=== PATIENT | female | born 1935 | race Caucasian/White ===

== ENCOUNTER 2018-06-24 14:17 | Observation (INO) ==
--- NOTE | 2018-06-24 15:30 | ED ---
HPI General Chief complaint: Extremity Problem,Nontraumatic Stated complaint: ear aches/neck/shoulder pain-lost voice Time Seen by Provider: 06/24/18 14:51 Source: patient Mode of arrival: ambulatory Limitations: no limitations History of Present Illness HPI narrative: 83-year-old female presents to the emergency department for multiple medical complaints. Patient states her left upper shoulder and neck has been sore for about 1 week. She says this started while she was on vacation recently. Says she has intermittent shortness of breath. She describes the pain as dull to sharp and intermittent in nature. When prompted, she states that she might have chest pain but is unable to characterize any further. Says the pain is decreased with sitting increases with walking and activity. She is rather poor historian and has difficulty tell me her medical problems. She states yesterday she was walking when her legs began to ache as well. She denies history of cardiac problems. Denies history of CVAs. Is unable to tell me if she has any other medical problems but shows me a list of medication which includes Coumadin, furosemide On metoprolol, and verapamil. Her primary care physician is Dr. Griffiths. Her documentation lead is Dr. Patino. Dr. Zamarripa is her oncologist. She does not know why she sees Dr. Zamarripa. After further discussion, she denies inciting events of her left shoulder pain and states she is concerned about her heart as her sister is in the hospital with heart problems. Related Data Home Medications Medication Instructions Recorded Confirmed atorvastatin 40 mg PO DAILY 04/19/18 06/24/18 furosemide 20 mg PO BID 04/19/18 06/24/18 metoprolol tartrate 100 mg PO BID 04/19/18 06/24/18 verapamil 240 mg PO QAM 04/19/18 06/24/18 warfarin [Coumadin] 1 mg PO DAILY 04/19/18 06/24/18 potassium chloride 10 meq PO DAILY 06/24/18 06/24/18 Allergies Allergy/AdvReac Type Severity Reaction Status Date / Time No Known Allergies Allergy Verified 06/24/18 14:26 Review of Systems ROS: all other systems reviewed are negative [facility] Social History Social History Substance History: No History of Abuse Second Hand Smoke Exposure: No Smoking Status: Never smoker How Often Do You Have a Drink Containing Alcohol: Never Recent Travel in [facility] within the Last 8 Weeks: No Recent Out of Country Travel within the Last 8 Weeks: No Immunization History Tetanus Immunization: Unsure Exam Narrative Exam Narrative: GENERAL: WD, WN in NAD SKIN: Focused skin assessment warm/dry. HEAD: Atraumatic. Normocephalic. EYES: Pupils equal and round. No scleral icterus. No injection or drainage. ENT: No nasal bleeding or discharge. Mucous membranes pink and moist. No tonsillar hypertrophy or exudate. Tm pearly linares. NECK: Trachea midline. No JVD. No meningismus. No lymphadenopathy. CARDIOVASCULAR: Regular rate and rhythm. No murmur appreciated. RESPIRATORY: No accessory muscle use. Clear to auscultation. Breath sounds equal bilaterally. GASTROINTESTINAL: Abdomen soft, non-tender, nondistended. Hepatic and splenic margins not palpable. No CVAT. MUSCULOSKELETAL: No obvious deformities. No clubbing. No cyanosis. No edema. No tenderness to palpation of the calves. Sensation intact to bilateral lower extremities. Minimal TTP to upper shoulder musculature. NEUROLOGICAL: Awake and alert. No obvious cranial nerve deficits. Motor grossly within normal limits. Normal speech. PSYCHIATRIC: Appropriate mood and affect; insight and judgment normal. Course Initial Documented Vital Signs Temperature 97.6 F 06/24/18 14:20 Pulse Rate 56 L 06/24/18 14:20 Respiratory Rate 16 06/24/18 14:20 Blood Pressure 107/52 L 06/24/18 14:20 Pulse Oximetry 97 06/24/18 14:20 Last Documented Vital Signs Temperature 98.3 F 06/24/18 19:00 Pulse Rate 71 06/24/18 19:00 Respiratory Rate 20 06/24/18 19:00 Blood Pressure 99/62 L 06/24/18 19:00 Pulse Oximetry 95 06/24/18 19:00 Medical Decision Making [facility] Narrative Medical decision making narrative: 83-year-old female presents to the emergency department for vague complaints. She initially complains of left shoulder and neck pain, sore throat, earaches, and generally just not feeling well. Upon further evaluation there were no inciting events. Physical exam findings were essentially unremarkable. Unable to reproduce her pain on palpation to the left shoulder and neck. She also admits to feeling occasionally short of breath and having aches in her legs. Denies swelling of her legs however. Decided to order a workup for cardiac based off of limited history from patient and poor historian. Patient admits that she has poor memory so do not believe that a septic workup is necessary at this time. I briefly reviewed the medical record it appears that patient has history of atrial fibrillation, hypertension, hyperlipidemia, arthritis, chronic CLL. Patient was seen in March of this year and was diagnosed with urinary tract infection. Labs appear to be stable. WBC 67.3, chronic. H/H3 0.83/12.1, INR 3.0 ( therapeutic), BUN/creatinine 22/1.70, troponin less than 0.02, BNP is 464. Her labs appear stable at this time. Urine is pending. EKG shows atrial fibrillation with rate 43 without STEMI changes. Reviewed previous EKG and this appears similar although the rate was in the 60s-70s. Based off the history and physical, will admit for symptomatic bradycardia. My attending also saw this patient and believes it was reasonable to admit this patient based off of her complaints today. I spoke with Dr. Coronado who agreed to the admission. Medical Screen Exam Complete: Yes Emergency Medical Condition: Yes Differential Diagnosis Differential Diagnosis: ACS, anginal equivalent, symptomatic bradycardia, medication noncompliance Lab Data Result diagrams: 06/24/18 15:14 06/24/18 15:14 Lab Results 06/24/18 06/24/18 06/24/18 Range/Units 15:14 15:14 15:14 CBC w Diff Slide review pending WBC 67.3 H (4.0-11.0) th/mm3 RBC 3.83 L (4.00-5.30) mil/mm3 Hgb 12.1 (11.6-15.3) gm/dL Hct 37.1 (35.0-46.0) % MCV 96.7 (80.0-100.0) fL MCH 31.5 (27.0-34.0) pg MCHC 32.6 (32.0-36.0) % RDW 15.4 (11.6-17.2) % Plt Count 213 (150-450) th/mm3 MPV 8.4 (7.0-11.0) fL Neut % (Auto) 14.8 L (16.0-70.0) % Lymph % (Auto) 78.8 H (9.0-44.0) % [place] % (Auto) 4.8 (0.0-8.0) % Eos % (Auto) 0.1 (0.0-4.0) % Baso % (Auto) 1.5 (0.0-2.0) % Neut # (Auto) 10.0 H (1.8-7.7) th/mm3 Lymph # (Auto) 53.0 H (1.0-4.8) th/mm3 [place] # (Auto) 3.2 H (0.0-0.9) th/mm3 Eos # (Auto) 0.1 (0.0-0.4) th/mm3 Baso # (Auto) 1.0 H (0.0-0.2) th/mm3 WBC Differential Manual diff final Seg Neuts % (Manual) 14 L (16-70) % Band Neuts % (Manual) 1 (0-6) % Lymphocytes % (Manual) 85 H (9-44) % Abs Neuts (Manual) 10.1 H (1.8-7.7) th/mm3 Differential Comment . Smudge Cells Present H (None) Platelet Estimate Normal (Normal) Platelet Morphology Normal (Normal) PT 30.4 H (9.8-11.6) sec INR 3.0 Ratio APTT 33.6 H (23.4-31.7) sec Sodium 137 (136-145) meq/L Potassium 4.4 (3.5-5.1) meq/L Chloride 103 (98-107) meq/L Carbon Dioxide 21.9 (21.0-32.0) meq/L Anion Gap 12 (5-15) meq/L BUN 22 H (7-18) mg/dL Creatinine 1.70 H (0.50-1.00) mg/dL Estimated GFR 29 L (>89) mL/min Random Glucose 130 H (74-106) mg/dL Calcium 8.4 L (8.5-10.1) mg/dL Total Bilirubin 0.7 (0.2-1.0) mg/dL AST 32 (15-37) U/L ALT 33 (10-53) U/L Alkaline Phosphatase 67 (45-117) U/L Troponin I Less than 0.02 L (0.02-0.05) ng/mL B-Natriuretic Peptide (0-100) pg/mL Total Protein 6.8 (6.4-8.2) g/dL Albumin 3.8 (3.4-5.0) g/dL 06/24/18 Range/Units 15:14 CBC w Diff WBC (4.0-11.0) th/mm3 RBC (4.00-5.30) mil/mm3 Hgb (11.6-15.3) gm/dL Hct (35.0-46.0) % MCV (80.0-100.0) fL MCH (27.0-34.0) pg MCHC (32.0-36.0) % RDW (11.6-17.2) % Plt Count (150-450) th/mm3 MPV (7.0-11.0) fL Neut % (Auto) (16.0-70.0) % Lymph % (Auto) (9.0-44.0) % [place] % (Auto) (0.0-8.0) % Eos % (Auto) (0.0-4.0) % Baso % (Auto) (0.0-2.0) % Neut # (Auto) (1.8-7.7) th/mm3 Lymph # (Auto) (1.0-4.8) th/mm3 [place] # (Auto) (0.0-0.9) th/mm3 Eos # (Auto) (0.0-0.4) th/mm3 Baso # (Auto) (0.0-0.2) th/mm3 WBC Differential Seg Neuts % (Manual) (16-70) % Band Neuts % (Manual) (0-6) % Lymphocytes % (Manual) (9-44) % Abs Neuts (Manual) (1.8-7.7) th/mm3 Differential Comment Smudge Cells (None) Platelet Estimate (Normal) Platelet Morphology (Normal) PT (9.8-11.6) sec INR Ratio APTT (23.4-31.7) sec Sodium (136-145) meq/L Potassium (3.5-5.1) meq/L Chloride (98-107) meq/L Carbon Dioxide (21.0-32.0) meq/L Anion Gap (5-15) meq/L BUN (7-18) mg/dL Creatinine (0.50-1.00) mg/dL Estimated GFR (>89) mL/min Random Glucose (74-106) mg/dL Calcium (8.5-10.1) mg/dL Total Bilirubin (0.2-1.0) mg/dL AST (15-37) U/L ALT (10-53) U/L Alkaline Phosphatase (45-117) U/L Troponin I (0.02-0.05) ng/mL B-Natriuretic Peptide 464 H (0-100) pg/mL Total Protein (6.4-8.2) g/dL Albumin (3.4-5.0) g/dL Imaging Data Radiologist's impression: Chest X-Ray 06/24/18 15:00 CONCLUSION: Stable chest appearance. No acute disease Discharge Plan Discharge Disposition Patient Disposition: 30 Still Patient Discharge Condition Condition: Stable Discharge Details Diagnosis: Symptomatic bradycardia Physicians Team ED Provider: Freddie Hiale ED Midlevel Provider: Comfort Marie Primary Care Provider: Hemal Mcginnis Attending Provider: Norman Coronado Status ED Status: Left Department Discharge Information Discharge Date/Time: 06/24/18 17:40
[2018-06-24 15:33] LABS: Chloride 103 meq/L (98-107); Potassium 4.4 meq/L (3.5-5.1); Sodium 137 meq/L (136-145)
[2018-06-24 15:36] LABS: Calcium 8.4 mg/dL (8.5-10.1)
--- NOTE | 2018-06-24 15:36 | XR ---
EXAM DATE: 06/24/2018 3:29 PM EST AGE/SEX: 83 years / Female INDICATIONS: Left chest pain for 1 week CLINICAL DATA: This is the patient's initial encounter. Patient reports that signs and symptoms have been present for 1 week and indicates a pain score of 6/10. MEDICAL/SURGICAL HISTORY: None. None. COMPARISON: [facility], CHEST 1V SINGLE AP, 04/19/2018. . FINDINGS: A single AP view of the chest demonstrates the lungs to be symmetrically aerated without evidence of mass, infiltrate or effusion. Stable mild asymmetric elevation of the left diaphragm. The cardiomedi astinal contours are unremarkable. Osseous structures are intact. CONCLUSION: Stable chest appearance. No acute disease Electronically signed by: Jairo Sierra MD 06/24/2018 3:34 PM EST
[2018-06-24 15:37] LABS: Albumin 3.8 g/dL (3.4-5.0); Anion Gap 12 meq/L (5-15); Baso % (Auto) 1.5 % (0.0-2.0); Blood Urea Nitrogen 22 mg/dL (7-18); Carbon Dioxide 21.9 meq/L (21.0-32.0); Eos # (Auto) 0.1 th/mm3 (0.0-0.4); Eos % (Auto) 0.1 % (0.0-4.0); Glucose,Random 130 mg/dL (74-106); Hematocrit 37.1 % (35.0-46.0); Hemoglobin 12.1 gm/dL (11.6-15.3); Lymph % (Auto) 78.8 % (9.0-44.0); Mean Corpuscular HGB Conc 32.6 % (32.0-36.0); Mean Corpuscular Hemoglobin 31.5 pg (27.0-34.0); Mean Corpuscular Volume 96.7 fL (80.0-100.0); Mean Platelet Volume 8.4 fL (7.0-11.0); Mono # (Auto) 3.2 th/mm3 (0.0-0.9); Mono % (Auto) 4.8 % (0.0-8.0); Neut % (Auto) 14.8 % (16.0-70.0); Platelet Count 213 th/mm3 (150-450); Red Blood Count 3.83 mil/mm3 (4.00-5.30); Red Cell Distribution Width 15.4 % (11.6-17.2); White Blood Count 67.3 th/mm3 (4.0-11.0)
[2018-06-24 15:38] LABS: Activated Partial Thrombo Time 33.6 sec (23.4-31.7); Prothrombin Time 30.4 sec (9.8-11.6)
[2018-06-24 15:40] LABS: Alanine Aminotransferase 33 U/L (10-53); Aspartate Aminotransferase 32 U/L (15-37); Glomerular Filtration Rate 29 mL/min (>89)
[2018-06-24 15:41] LABS: Total Protein 6.8 g/dL (6.4-8.2)
[2018-06-24 15:43] LABS: Alkaline Phosphatase 67 U/L (45-117)
[2018-06-24 16:08] LABS: Lymphocytes 85 % (9-44)
[2018-06-24 16:09] LABS: Platelet Estimate Normal (Normal); Platelet Morphology Normal (Normal); Smudge Cells Present
[2018-06-24] MEDS ORDERED: Acetaminophen 325 MG Tablet PO PRN (17:14)
--- NOTE | 2018-06-24 17:24 | P.HP ---
History of Present Illness [facility] Primary Care Physician: Hemal Mcginnis MD Chief Complaint: Generalized weakness History of Present Illness: 83-year-old white female presents to [place] emergency room with numerous different complaints difficult exactly to tell exactly what is bothering her first it was lower leg pain also shoulder pain which is more consistent with degenerate arthritis, some trouble ambulating due to the weakness to the lower extremities with more of a diffuse weakness, and the emergency room was found to have low blood pressure as well as a low pulse in the 40s. Patient apparently has a history of hypertension history of atrial fibrillation is been on verapamil and metoprolol, also on Lasix 20 twice daily and potassium supplementation. Electrocardiogram in the emergency room shows a sinus bradycardia pulse rate was approximately 95/60 initially we will hold her p.o. blood pressure medicines metoprolol and verapamil for now and see how she does overnight. As patient lives alone she may benefit from short-term rehab especially in view of the weakness will ask physical therapy to assess her in the morning. Patient denies any chest pain any real shortness of breath no nausea no vomiting and no other significant compliants. - Diagnosis (1) Hypotension (2) Symptomatic bradycardia (3) Weakness Review of Systems All other systems reviewed negative except as stated in HPI PMFSH - History History Provided By: Patient - Medical History Medical History: Medical History (Last Reviewed 06/24/18 @ 14:38 by Lori Dave RN) CLL (chronic lymphocytic leukemia) Chronic a-fib HTN (hypertension) with goal to be determined Hyperlipidemia Melanoma - Surgical History Surgical History: Surgical History (Last Reviewed 06/24/18 @ 17:21 by Norman Coronado MD) History of appendectomy - Tobacco History Second Hand Smoke Exposure: No Smoking Status: Never smoker - Alcohol History How Often Do You Have a Drink Containing Alcohol: Never - Substance Use History Substance History: No History of Abuse - Travel History Recent Travel in the [place] Within the Last 8 Weeks: No Recent Travel Out of the Country Within the Last 8 Weeks: No - Immunization History Tetanus Immunization: Unsure Medications and Allergies Active Medications: Active Medications Acetaminophen (Tylenol) 650 mg PO Q4H PRN PRN Reason: Temp > 100.4 Atorvastatin Calcium (Lipitor) 40 mg PO DAILY SUSIE Furosemide (Lasix) 20 mg PO DAILY SUSIE Ondansetron HCl (Zofran Inj) 4 mg IV.PUSH Q6H PRN PRN Reason: NAUSEA OR VOMITING Potassium Chloride (Klor-Con 10) 10 meq PO DAILY SUSIE Senna/Docusate Sodium (Pearl-Colace) 1 tab PO BID SUSIE Sodium Chloride (Ns Flush) 2 ml IV.FLUSH UNSCH PRN PRN Reason: FLUSH AFTER USING IV ACCESS Sodium Chloride (Ns Flush) 2 ml IV.FLUSH BID SUSIE Sodium Chloride (Ns Flush) 2 ml IV.FLUSH PRN PRN PRN Reason: FLUSH AFTER USING IV ACCESS Warfarin Sodium (Coumadin) 1 mg PO DAILY [facility] Allergies Allergy/AdvReac Type Severity Reaction Status Date / Time No Known Allergies Allergy Verified 06/24/18 14:26 Home Medications Medication Instructions Recorded Confirmed Type atorvastatin 40 mg PO DAILY 04/19/18 06/24/18 History furosemide 20 mg PO BID 04/19/18 06/24/18 History metoprolol tartrate 100 mg PO BID 04/19/18 06/24/18 History verapamil 240 mg PO QAM 04/19/18 06/24/18 History warfarin [Coumadin] 1 mg PO DAILY 04/19/18 06/24/18 History potassium chloride 10 meq PO DAILY 06/24/18 06/24/18 History Exam Vital signs: Vital Signs 06/24/18 14:20 06/24/18 15:00 06/24/18 16:32 Temperature 97.6 F Pulse Rate 56 L 44 L 49 L Respiratory Rate 16 16 18 Blood Pressure 107/52 L 95/50 L 115/61 Pulse Oximetry 97 99 96 Intake & Output 06/23/18 06/24/18 06/24/18 18:59 06:59 18:59 Weight 57 kg Narrative: GENERAL: SKIN: Warm and dry. HEAD: Normocephalic. EYES: No scleral icterus. No injection or drainage. NECK: Supple, trachea midline. No JVD or lymphadenopathy. CARDIOVASCULAR: Regular rate and rhythm without murmurs, gallops, or rubs. RESPIRATORY: Breath sounds equal bilaterally. No accessory muscle use. GASTROINTESTINAL: Abdomen soft, non-tender, nondistended. MUSCULOSKELETAL: No cyanosis, or edema. BACK: Nontender without obvious deformity. No CVA tenderness. Results - Labs CBC & Chem 7: 06/24/18 15:14 06/24/18 15:14 Labs: Laboratory Results - last 24 hr 06/24/18 06/24/18 06/24/18 15:14 15:14 15:14 CBC w Diff Slide review pending WBC 67.3 H RBC 3.83 L Hgb 12.1 Hct 37.1 MCV 96.7 MCH 31.5 MCHC 32.6 RDW 15.4 Plt Count 213 MPV 8.4 Neut % (Auto) 14.8 L Lymph % (Auto) 78.8 H [place] % (Auto) 4.8 Eos % (Auto) 0.1 Baso % (Auto) 1.5 Neut # (Auto) 10.0 H Lymph # (Auto) 53.0 H [place] # (Auto) 3.2 H Eos # (Auto) 0.1 Baso # (Auto) 1.0 H WBC Differential Manual diff final Seg Neuts % (Manual) 14 L Band Neuts % (Manual) 1 Lymphocytes % (Manual) 85 H Abs Neuts (Manual) 10.1 H Differential Comment . Smudge Cells Present H Platelet Estimate Normal Platelet Morphology Normal PT 30.4 H INR 3.0 APTT 33.6 H Sodium 137 Potassium 4.4 Chloride 103 Carbon Dioxide 21.9 Anion Gap 12 BUN 22 H Creatinine 1.70 H Estimated GFR 29 L Random Glucose 130 H Calcium 8.4 L Total Bilirubin 0.7 AST 32 ALT 33 Alkaline Phosphatase 67 Troponin I Less than 0.02 L B-Natriuretic Peptide Total Protein 6.8 Albumin 3.8 06/24/18 15:14 CBC w Diff WBC RBC Hgb Hct MCV MCH MCHC RDW Plt Count MPV Neut % (Auto) Lymph % (Auto) [place] % (Auto) Eos % (Auto) Baso % (Auto) Neut # (Auto) Lymph # (Auto) [place] # (Auto) Eos # (Auto) Baso # (Auto) WBC Differential Seg Neuts % (Manual) Band Neuts % (Manual) Lymphocytes % (Manual) Abs Neuts (Manual) Differential Comment Smudge Cells Platelet Estimate Platelet Morphology PT INR APTT Sodium Potassium Chloride Carbon Dioxide Anion Gap BUN Creatinine Estimated GFR Random Glucose Calcium Total Bilirubin AST ALT Alkaline Phosphatase Troponin I B-Natriuretic Peptide 464 H Total Protein Albumin - Imaging Impressions Chest X-Ray 06/24/18 15:00 CONCLUSION: Stable chest appearance. No acute disease Caprini VTE Risk Assessment Caprini VTE Risk Assessment: Moderate/High Risk (score >= 2) Caprini Risk Assessment Model: Point Value = 1 Point Value = 2 Point Value = 3 Point Value = 5 Age 41-60 Minor surgery BMI > 25 kg/m2 Swollen legs Varicose veins or History of unexplained or recurrent spontaneous Oral contraceptives or hormone replacement Sepsis (< 1 month) Serious lung disease, including pneumonia (< 1 month) Abnormal pulmonary function Acute myocardial infarction Congestive heart failure (< 1 month) History of inflammatory bowel disease Medical patient at bed rest Age 61-74 Arthroscopic surgery Major open surgery (> 45 min) Laparoscopic surgery (> 45 min) Malignancy Confined to bed (> 72 hours) Immobilizing plaster cast Central venous access Age >= 75 History of VTE Family history of VTE Factor V Leiden Prothrombin [id number] Lupus anticoagulant Anticardiolipin antibodies Elevated serum homocysteine Heparin-induced thrombocytopenia Other congenital or acquired thrombophilia Stroke (< 1 month) Elective arthroplasty Hip, pelvis, or leg fracture Acute spinal cord injury (< 1 month) Prophylaxis Regimen: Total Risk Factor Score Risk Level Prophylaxis Regimen 0-1 Low Early ambulation 2 Moderate Order ONE of the following: *Sequential Compression Device (SCD) *Heparin 5000 units SQ BID 3-4 Higher Order ONE of the following medications: *Heparin 5000 units SQ TID *Enoxaparin/Lovenox 40 mg SQ daily (WT < 150 kg, CrCl > 30 mL/min) *Enoxaparin/Lovenox 30 mg SQ daily (WT < 150 kg, CrCl > 10-29 mL/min) *Enoxaparin/Lovenox 30 mg SQ BID (WT < 150 kg, CrCl > 30 mL/min) AND/OR *Sequential Compression Device (SCD) 5 or more Highest Order ONE of the following medications: *Heparin 5000 units SQ TID (Preferred with Epidurals) *Enoxaparin/Lovenox 40 mg SQ daily (WT < 150 kg, CrCl > 30 mL/min) *Enoxaparin/Lovenox 30 mg SQ daily (WT < 150 kg, CrCl > 10-29 mL/min) *Enoxaparin/Lovenox 30 mg SQ BID (WT < 150 kg, CrCl > 30 mL/min) AND *Sequential Compression Device (SCD) Assessment and Plan - Assessment (1) Hypotension Code(s): I95.9 - Hypotension, unspecified Status: Acute Plan: We will see how patient does holding her blood pressure medicines and see how she tolerates food hold off any further IV fluid (2) Symptomatic bradycardia Code(s): R00.1 - Bradycardia, unspecified Status: Acute Plan: Patient does have generalized weakness and symptomatic bradycardia which I believe may correct itself once we hold her metoprolol and verapamil (3) Weakness Code(s): R53.1 - Weakness Status: Acute - Plan Weakness is generalized mainly to the lower extremities and could be related to the blood pressure and pulse rate will get physical therapy evaluation I feel we will need to observe her and possibly a short-term rehab situation will ask again for physical therapy and put in for case management evaluation. Code Status: Full Discussed Condition With: Patient
[2018-06-24] MEDS: Senna/Docusate Sodium 8.6/50 MG Tablet PO SCH (22:03)
[2018-06-25] MEDS: Furosemide 20 MG Tablet PO SCH (08:24)
[2018-06-25] MEDS: Senna/Docusate Sodium 8.6/50 MG Tablet PO SCH ×2 (08:25→20:25)
--- NOTE | 2018-06-25 10:05 | P.PN ---
Subjective Interval history: Patient admitted with bradycardia with weakness and had low blood pressure was on both verapamil and metoprolol and lasix 20 bid ,i continued lasix 20 daily and held both metoprolol and verapamil BP is now stable but heart rate has gone up to 105 on monitor sinus with apc,will restart metoprolol at lower dose . Dose was metoprolol 100 bid restart at 25 bid and continue to hold verapamil 240 and as did have some elevation bnp continue lasix at 20 daily . There was some atrial fib on monitor ,although now appears sinus with apc will ask for cardiac evaluation . Physical Exam Vital signs: Vital Signs 06/24/18 14:20 06/24/18 15:00 06/24/18 16:32 Temperature 97.6 F Pulse Rate 56 L 44 L 49 L Respiratory Rate 16 16 18 Blood Pressure 107/52 L 95/50 L 115/61 Pulse Oximetry 97 99 96 06/24/18 17:14 06/24/18 18:11 06/24/18 19:00 Temperature 98.3 F Pulse Rate 50 L 47 L 71 Respiratory Rate 16 20 Blood Pressure 115/60 99/62 L Pulse Oximetry 97 95 06/24/18 20:00 06/24/18 20:30 06/25/18 04:00 Temperature 97.4 F L 97.7 F Pulse Rate 99 H 58 L 97 H Respiratory Rate 20 20 Blood Pressure 103/62 115/76 Pulse Oximetry 96 94 L 06/25/18 04:15 06/25/18 05:05 06/25/18 05:32 Temperature Pulse Rate 94 H 77 Respiratory Rate 18 Blood Pressure Pulse Oximetry 06/25/18 08:00 Temperature 98.6 F Pulse Rate 107 H Respiratory Rate 15 Blood Pressure 107/57 L Pulse Oximetry 94 L Intake & Output 06/24/18 06/25/18 06/25/18 18:59 06:59 18:59 Intake Total 120 / 120 Balance 120 / 120 Weight 57 kg 57.3 kg Intake: Oral 120 / 120 Other: # Voids 1 2 Weight On Admission 57 kg Narrative: GENERAL: SKIN: Warm and dry. HEAD: Normocephalic. EYES: No scleral icterus. No injection or drainage. NECK: Supple, trachea midline. No JVD or lymphadenopathy. CARDIOVASCULAR:IRREG rate and rhythm without murmurs, gallops, or rubs. RESPIRATORY: Breath sounds equal bilaterally. No accessory muscle use. GASTROINTESTINAL: Abdomen soft, non-tender, nondistended. MUSCULOSKELETAL: No cyanosis, or edema. BACK: Nontender without obvious deformity. No CVA tenderness. Results - Labs CBC & Chem 7: 06/24/18 15:14 06/24/18 15:14 Laboratory Results - last 24 hr 06/24/18 06/24/18 06/24/18 15:14 15:14 15:14 CBC w Diff Slide review pending WBC 67.3 H RBC 3.83 L Hgb 12.1 Hct 37.1 MCV 96.7 MCH 31.5 MCHC 32.6 RDW 15.4 Plt Count 213 MPV 8.4 Neut % (Auto) 14.8 L Lymph % (Auto) 78.8 H [place] % (Auto) 4.8 Eos % (Auto) 0.1 Baso % (Auto) 1.5 Neut # (Auto) 10.0 H Lymph # (Auto) 53.0 H [place] # (Auto) 3.2 H Eos # (Auto) 0.1 Baso # (Auto) 1.0 H WBC Differential Manual diff final Seg Neuts % (Manual) 14 L Band Neuts % (Manual) 1 Lymphocytes % (Manual) 85 H Abs Neuts (Manual) 10.1 H Differential Comment . Smudge Cells Present H Platelet Estimate Normal Platelet Morphology Normal PT 30.4 H INR 3.0 APTT 33.6 H Sodium 137 Potassium 4.4 Chloride 103 Carbon Dioxide 21.9 Anion Gap 12 BUN 22 H Creatinine 1.70 H Estimated GFR 29 L Random Glucose 130 H Calcium 8.4 L Total Bilirubin 0.7 AST 32 ALT 33 Alkaline Phosphatase 67 Troponin I Less than 0.02 L B-Natriuretic Peptide Total Protein 6.8 Albumin 3.8 06/24/18 15:14 CBC w Diff WBC RBC Hgb Hct MCV MCH MCHC RDW Plt Count MPV Neut % (Auto) Lymph % (Auto) [place] % (Auto) Eos % (Auto) Baso % (Auto) Neut # (Auto) Lymph # (Auto) [place] # (Auto) Eos # (Auto) Baso # (Auto) WBC Differential Seg Neuts % (Manual) Band Neuts % (Manual) Lymphocytes % (Manual) Abs Neuts (Manual) Differential Comment Smudge Cells Platelet Estimate Platelet Morphology PT INR APTT Sodium Potassium Chloride Carbon Dioxide Anion Gap BUN Creatinine Estimated GFR Random Glucose Calcium Total Bilirubin AST ALT Alkaline Phosphatase Troponin I B-Natriuretic Peptide 464 H Total Protein Albumin - Imaging Impressions Chest X-Ray 06/24/18 15:00 CONCLUSION: Stable chest appearance. No acute disease Assessment and Plan - Assessment (1) Hypotension Code(s): I95.9 - Hypotension, unspecified Status: Acute Plan: Blood pressure improved but heart rate increased will restart lopressor 25 bid and continue to hold verapamil 240 (2) Symptomatic bradycardia Code(s): R00.1 - Bradycardia, unspecified Status: Acute Plan: Patient heart rate now increased will restart metoprolol 25 bid ask for cardiac evaluation as on monitor ,does have some a fib also,on coumadin will follow up on inr (3) Weakness Code(s): R53.1 - Weakness Status: Acute - Plan Weakness is generalized mainly to the lower extremities and could be related to the blood pressure and pulse rate will get physical therapy evaluation I feel we will need to observe her and possibly a short-term rehab situation will ask again for physical therapy and put in for case management evaluation.
--- NOTE | 2018-06-25 14:16 | ECG ---
Date Performed: 06/24/2018 Time Performed: 15:11:17 PTAGE: 83 years EKG: ATRIAL FIBRILLATION WITH SLOW VENTRICULAR RESPONSE ST DEVIATION AND MODERATE T-WAVE ABNORMA LITY, CONSIDER ANTERIOR ISCHEMIA ABNORMAL ECG PREVIOUS TRACING : 04/19/2018 12.04 Compared to previous tracing, atrial firbrillation replaces Sinus rhythm but otherwise largely unchanged. DOCTOR: Jimbo Ferreira Interpretating Date/Time 06/25/2018 14:15:38
[2018-06-25] MEDS: Metoprolol Tartrate 25 MG Tablet PO SCH ×2 (15:02→20:26)
--- NOTE | 2018-06-25 17:41 | P.CONCA ---
History of Present Illness Service: Cardiology, for [facility] Consult date: 06/25/18 Requesting Physician: Norman Coronado Reason for Consult: symptomatic bradycardia Primary Care Provider: Hemal Mcginnis MD Chief Complaint: Generalized weakness History of Present Illness: 83-year-old lady, patient of DR. Ollie patino, was admitted for generalized weakness, found to have significant bradycardia. ECG on admission 06/24/2018 showed afib SVR at 43 bpm. She reported no chest pain, no dyspnea, no dizziness , no syncope. She had appt with Dr. Patino a few months ago. Review of Systems All other systems reviewed negative except as [facility] - History History Provided By: Patient - Medical History Medical History: Medical History (Last Reviewed 06/25/18 @ 07:13 by Margo Sy) CLL (chronic lymphocytic leukemia) Chronic a-fib HTN (hypertension) with goal to be determined Hyperlipidemia Melanoma - Surgical History Surgical History: Surgical History (Last Reviewed 06/25/18 @ 07:13 by Margo Sy) History of appendectomy - Tobacco History Second Hand Smoke Exposure: No Smoking Status: Never smoker - Alcohol History How Often Do You Have a Drink Containing Alcohol: Never - Substance Use History Substance History: No History of Abuse - Travel History Recent Travel in the [place] Within the Last 8 Weeks: No Recent Travel Out of the Country Within the Last 8 Weeks: No - Immunization History Tetanus Immunization: Unsure Medications and Allergies Active Medications: Active Medications Acetaminophen (Tylenol) 650 mg PO Q4H PRN PRN Reason: Temp > 100.4 Atorvastatin Calcium (Lipitor) 40 mg PO DAILY [facility] Last Admin: 06/25/18 08:25 Dose: 40 mg Furosemide (Lasix) 20 mg PO DAILY [facility] Last Admin: 06/25/18 08:24 Dose: 20 mg Metoprolol Tartrate (Lopressor) 25 mg PO BID [facility] Last Admin: 06/25/18 15:02 Dose: 25 mg Ondansetron HCl (Zofran Inj) 4 mg IV.PUSH Q6H PRN PRN Reason: NAUSEA OR VOMITING Potassium Chloride (Klor-Con 10) 10 meq PO DAILY [facility] Last Admin: 06/25/18 08:25 Dose: 10 meq Senna/Docusate Sodium (Pearl-Colace) 1 tab PO BID [facility] Last Admin: 12/01/18 08:25 Dose: 1 tab Sodium Chloride (Ns Flush) 2 ml IV.FLUSH UNSCH PRN PRN Reason: FLUSH AFTER USING IV ACCESS Sodium Chloride (Ns Flush) 2 ml IV.FLUSH BID [facility] Last Admin: 06/25/18 08:25 Dose: 2 ml Sodium Chloride (Ns Flush) 2 ml IV.FLUSH PRN PRN PRN Reason: FLUSH AFTER USING IV ACCESS Warfarin Sodium (Coumadin) 1 mg PO DAILY [facility] Last Admin: 06/25/18 08:25 Dose: 1 mg Allergies Allergy/AdvReac Type Severity Reaction Status Date / Time No Known Allergies Allergy Verified 06/24/18 14:26 Home Medications Medication Instructions Recorded Confirmed Type atorvastatin 40 mg PO DAILY 04/19/18 06/24/18 History furosemide 20 mg PO BID 04/19/18 06/24/18 History metoprolol tartrate 100 mg PO BID 04/19/18 06/24/18 History verapamil 240 mg PO QAM 04/19/18 06/24/18 History warfarin [Coumadin] 1 mg PO DAILY 04/19/18 06/24/18 History potassium chloride 10 meq PO DAILY 06/24/18 06/24/18 History Exam Vital signs: Vital Signs 06/24/18 18:11 06/24/18 19:00 06/24/18 20:00 Temperature 98.3 F 97.4 F L Pulse Rate 47 L 71 99 H Respiratory Rate 20 20 Blood Pressure 99/62 L 103/62 Pulse Oximetry 95 96 06/24/18 20:30 06/25/18 04:00 06/25/18 04:15 Temperature 97.7 F Pulse Rate 58 L 97 H 94 H Respiratory Rate 20 Blood Pressure 115/76 Pulse Oximetry 94 L 06/25/18 05:05 06/25/18 05:32 06/25/18 08:00 Temperature 98.6 F Pulse Rate 77 107 H Respiratory Rate 18 15 Blood Pressure 107/57 L Pulse Oximetry 94 L 06/25/18 12:00 06/25/18 16:00 Temperature 98.0 F 98.2 F Pulse Rate 102 H 91 H Respiratory Rate 15 16 Blood Pressure 105/66 133/78 Pulse Oximetry 96 96 Intake & Output 06/24/18 06/25/18 06/25/18 18:59 06:59 18:59 Intake Total 120 / 120 Balance 120 / 120 Weight 57 kg 57.3 kg Intake: Oral 120 / 120 Other: # Voids 1 2 Weight On Admission 57 kg - Constitutional no acute distress - Routine HEENT Exam Head: Present: normocephalic, atraumatic Eye: Present: EOMI, PERRL, conjunctivae pink ENT: Present: mucous membranes moist - Routine Neck Exam Present: supple, full ROM, carotid bruit. Absent: JVD - Routine Respiratory Exam Present: CTA bilaterally - Routine Cardiovascular Exam Present: irregular rhythm - Routine Abdominal Exam Present: soft, normoactive bowel sounds - Routine Extremities Exam Present: full ROM, normal capillary refill. Absent: edema - Routine Skin Exam Present: intact - Routine Neurological Exam Present: alert, oriented X3 - Routine Psychiatric Exam Present: normal affect Results 06/24/18 15:14 06/24/18 15:14 Cardiac Enzymes 06/24/18 06/24/18 Range/Units 15:14 15:14 AST 32 (15-37) U/L Troponin I Less than 0.02 L (0.02-0.05) ng/mL B-Natriuretic Peptide 464 H (0-100) pg/mL Coagulation 06/24/18 06/24/18 Range/Units 15:14 15:14 PT 30.4 H (9.8-11.6) sec APTT 33.6 H (23.4-31.7) sec B-Natriuretic Peptide 464 H (0-100) pg/mL CBC 06/24/18 Range/Units 15:14 WBC 67.3 H (4.0-11.0) th/mm3 RBC 3.83 L (4.00-5.30) mil/mm3 Hgb 12.1 (11.6-15.3) gm/dL Hct 37.1 (35.0-46.0) % Plt Count 213 (150-450) th/mm3 Neut # (Auto) 10.0 H (1.8-7.7) th/mm3 Lymph # (Auto) 53.0 H (1.0-4.8) th/mm3 [place] # (Auto) 3.2 H (0.0-0.9) th/mm3 Eos # (Auto) 0.1 (0.0-0.4) th/mm3 Baso # (Auto) 1.0 H (0.0-0.2) th/mm3 Comprehensive Metabolic Panel 06/24/18 Range/Units 15:14 Sodium 137 (136-145) meq/L Potassium 4.4 (3.5-5.1) meq/L Chloride 103 (98-107) meq/L Carbon Dioxide 21.9 (21.0-32.0) meq/L BUN 22 H (7-18) mg/dL Creatinine 1.70 H (0.50-1.00) mg/dL Calcium 8.4 L (8.5-10.1) mg/dL AST 32 (15-37) U/L ALT 33 (10-53) U/L Alkaline Phosphatase 67 (45-117) U/L Total Protein 6.8 (6.4-8.2) g/dL Albumin 3.8 (3.4-5.0) g/dL Intake and Output 06/25/18 06/25/18 06/25/18 06:59 14:59 22:59 Intake Total 120 / 120 Balance 120 / 120 Intake: Oral 120 / 120 Other: # Voids 2 Weight 57.3 kg - Imaging and Cardiology Imaging: Impressions Chest X-Ray 06/24/18 15:00 CONCLUSION: Stable chest appearance. No acute disease Assessment and Plan - Assessment (1) Atrial fibrillation Code(s): I48.91 - Unspecified atrial fibrillation Status: Acute (2) Symptomatic bradycardia Code(s): R00.1 - Bradycardia, unspecified Status: Acute (3) Hypotension Code(s): I95.9 - Hypotension, unspecified Status: Acute (4) Weakness Code(s): R53.1 - Weakness Status: Acute - Plan 83 yo lady with generalized weakness 1. Chronic afib, HR 43 up to 113 Was on both Metoprolol and Verapamil Agreed to resume Metoprolol but reduce from 100 to 25 bid and Discontinue verapamil 240, If difficult to regulate, may consider PPM. Continue Warfarin for stroke prevention\ 2. CLL, follow up with oncology 3. Generalized weakness, possible rehab. Recent Echo in [facility] cardiology department ??
[2018-06-26] MEDS: Senna/Docusate Sodium 8.6/50 MG Tablet PO SCH (08:18)
[2018-06-26] MEDS: Furosemide 20 MG Tablet PO SCH (08:18)
[2018-06-26] MEDS: Metoprolol Tartrate 25 MG Tablet PO SCH (08:18)
[2018-06-26 08:52] LABS: Potassium 3.9 meq/L (3.5-5.1)
[2018-06-26 08:56] LABS: Calcium 8.4 mg/dL (8.5-10.1); INR 2.6 Ratio; Prothrombin Time 26.1 sec (9.8-11.6)
[2018-06-26 08:58] LABS: Baso % (Auto) 0.1 % (0.0-2.0); Eos % (Auto) 0.1 % (0.0-4.0); Hematocrit 36.3 % (35.0-46.0); Lymph # (Auto) 40.9 th/mm3 (1.0-4.8); Lymph % (Auto) 89.7 % (9.0-44.0); Mean Corpuscular Hemoglobin 31.9 pg (27.0-34.0); Mean Corpuscular Volume 96.7 fL (80.0-100.0); Mean Platelet Volume 8.6 fL (7.0-11.0); Mono # (Auto) 1.1 th/mm3 (0.0-0.9); Mono % (Auto) 2.4 % (0.0-8.0); Neut # (Auto) 3.5 th/mm3 (1.8-7.7); Neut % (Auto) 7.7 % (16.0-70.0); Platelet Count 174 th/mm3 (150-450); Red Blood Count 3.75 mil/mm3 (4.00-5.30); Red Cell Distribution Width 15.2 % (11.6-17.2); White Blood Count 45.5 th/mm3 (4.0-11.0)
--- NOTE | 2018-06-26 10:58 | P.PN ---
Subjective Interval history: Patient feeling well but heart rate did increase to 110 now on metoprolol 25 bid cardiology did see patient agree with current plan . Patient did have elevated BNP on exam lungs are clear ,patient was on lasix 20 bid will change to that dose ,will get chest xray today if OK transfer to rehab later today. Physical Exam Vital signs: Vital Signs 06/25/18 12:00 06/25/18 16:00 06/25/18 20:00 Temperature 98.0 F 98.2 F 98.3 F Pulse Rate 102 H 91 H 99 H Respiratory Rate 15 16 20 Blood Pressure 105/66 133/78 126/83 Pulse Oximetry 96 96 97 06/26/18 00:00 06/26/18 04:00 06/26/18 08:00 Temperature 97.7 F 97.8 F 97.6 F Pulse Rate 108 H 110 H 102 H Respiratory Rate 20 20 17 Blood Pressure 113/59 L 113/69 90/55 L Pulse Oximetry 97 94 L 95 06/26/18 10:42 Temperature Pulse Rate Respiratory Rate Blood Pressure Pulse Oximetry 98 Intake & Output 06/25/18 06/26/18 06/26/18 18:59 06:59 18:59 Intake Total 720 / 720 120 / 120 Balance 720 / 720 120 / 120 Weight 57.4 kg Intake: Oral 720 / 720 120 / 120 Other: # Voids 6 2 # Bowel Movements 1 1 Results - Labs CBC & Chem 7: 06/26/18 06:43 06/26/18 06:43 Laboratory Results - last 24 hr 06/26/18 06/26/18 06/26/18 06:43 06:43 06:43 CBC w Diff Slide review pending WBC 45.5 H RBC 3.75 L Hgb 12.0 Hct 36.3 MCV 96.7 MCH 31.9 MCHC 33.0 RDW 15.2 Plt Count 174 MPV 8.6 Neut % (Auto) 7.7 L Lymph % (Auto) 89.7 H [place] % (Auto) 2.4 Eos % (Auto) 0.1 Baso % (Auto) 0.1 Neut # (Auto) 3.5 Lymph # (Auto) 40.9 H [place] # (Auto) 1.1 H Eos # (Auto) 0.0 Baso # (Auto) 0.0 Differential Comment . PT INR Sodium 143 Potassium 3.9 Chloride 107 Carbon Dioxide 26.0 Anion Gap 10 BUN 17 Creatinine 1.20 H Estimated GFR 43 L Random Glucose 73 L Calcium 8.4 L B-Natriuretic Peptide 1592 H 06/26/18 06:43 CBC w Diff WBC RBC Hgb Hct MCV MCH MCHC RDW Plt Count MPV Neut % (Auto) Lymph % (Auto) [place] % (Auto) Eos % (Auto) Baso % (Auto) Neut # (Auto) Lymph # (Auto) [place] # (Auto) Eos # (Auto) Baso # (Auto) Differential Comment PT 26.1 H INR 2.6 Sodium Potassium Chloride Carbon Dioxide Anion Gap BUN Creatinine Estimated GFR Random Glucose Calcium B-Natriuretic Peptide Assessment and Plan - Assessment (1) Hypotension Code(s): I95.9 - Hypotension, unspecified Status: Acute Plan: Blood pressure improved but heart rate increased now on lopressor 25 bid and continue to hold verapamil 240, (2) Symptomatic bradycardia Code(s): R00.1 - Bradycardia, unspecified Status: Acute Plan: Patient heart rate now increased will restart metoprolol 25 bid ask for cardiac evaluation as on monitor ,does have some a fib also,on coumadin will follow up on inr. Patient did have increase heart rate and had increase BNP will get chest xray increase lasix to 20 bid (3) Weakness Code(s): R53.1 - Weakness Status: Acute - Plan Weakness is generalized mainly to the lower extremities and could be related to the blood pressure and pulse rate will get physical therapy evaluation I feel we will need to observe her and possibly a short-term rehab situation PT agrees
[2018-06-26 11:00] LABS: Blast Cells 2 % (0-0); Lymphocytes 93 % (9-44); Monocytes 1 % (0-8)
[2018-06-26 11:01] LABS: Ovalocytes 1+; Stomatocytes 2+
[2018-06-26 11:02] LABS: Platelet Estimate Normal (Normal); Platelet Morphology Normal (Normal); Smudge Cells Present
--- NOTE | 2018-06-26 11:46 | XR ---
EXAM DATE: 06/26/2018 11:40 AM EST AGE/SEX: 83 years / Female INDICATIONS: Chest pain, palpitations CLINICAL DATA: This is the patient's subsequent encounter. Patient reports that signs and symptoms h ave been present for 1 week and indicates a pain score of 7/10. MEDICAL/SURGICAL HISTORY: None. None. COMPARISON: [facility]PO, CHEST 1V SINGLE AP, 06/24/2018. . FINDINGS: A single AP view of the chest demonstrates the lungs to be symmetrically aerated without evidence of mass, infiltrate or effusion. The cardiomediastinal contours are unremarkable. Osseous structures a re intact. CONCLUSION: No acute pulmonary infiltrates. No significant change compared to the prior exam. Electronically signed by: Remigio Ken MD 06/26/2018 11:44 AM EST
[2018-06-26 12:16] VITALS: RESP 16
--- NOTE | 2018-06-26 15:47 | P.DS ---
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 Patient apparently has a history of hypertension history of atrial fibrillation is been on verapamil and metoprolol, also on Lasix 20 twice daily and potassium supplementation. Electrocardiogram in the emergency room shows a sinus bradycardia pulse rate was approximately 95/60 initially we will hold her p.o. blood pressure medicines metoprolol and verapamil for now and see how she does overnight. As patient lives alone she may benefit from short-term rehab especially in view of the weakness will ask physical therapy to assess her in the morning. Patient denies any chest pain any real shortness of breath no nausea no vomiting and no other significant compliants. DS: Diagnosis - Discharge Diagnosis (1) Hypotension Status: Acute (2) Symptomatic bradycardia Status: Acute (3) Weakness Status: Acute (4) Atrial fibrillation Status: Acute DS: Summary Hospital Course: Patient admitted with symptomatic bradycardia and hypotension ,metoprolol 100 bid held and verapamil 240 held,also lasix decreased to 20 daily. Symptoms improved bradycardia resolved BP stablilized but heart rate did increase and restarted metoprolol to 25 bid and bnp increased and lasix restarted at 20 bid chest xray was unremarkable times 2. Patient was weak and did have PT see patient and felt would need short term rehab . Will review old record from PCP and cardiology ,we did have cardiology see patient in hospital and they agreed with lowering medications,and if symptoms continue may need pacemaker. will follow heart rate and bp in rehab follow BNP and bmp also has hx CLL will follow cbc . Once review old records will see if had recent 2d echo and will arrange cardiac follow up. - Time Spent with Patient Total time spent providing and/or coordinating discharge services: Greater than 30 minutes - Quality: VTE Deep Vein Thrombosis/Pulmonary Embolism Present on Admission: No Exam Vital signs: Vital Signs 06/25/18 16:00 06/25/18 20:00 06/26/18 00:00 Temperature 98.2 F 98.3 F 97.7 F Pulse Rate 91 H 99 H 108 H Respiratory Rate 16 20 20 Blood Pressure 133/78 126/83 113/59 L Pulse Oximetry 96 97 97 06/26/18 04:00 06/26/18 08:00 06/26/18 10:42 Temperature 97.8 F 97.6 F Pulse Rate 110 H 102 H Respiratory Rate 20 17 Blood Pressure 113/69 90/55 L Pulse Oximetry 94 L 95 98 06/26/18 12:00 Temperature 97.0 F L Pulse Rate 113 H Respiratory Rate 16 Blood Pressure 121/72 Pulse Oximetry 96 Intake & Output 06/25/18 06/26/18 06/26/18 18:59 06:59 18:59 Intake Total 720 / 720 120 / 120 Balance 720 / 720 120 / 120 Weight 57.4 kg Intake: Oral 720 / 720 120 / 120 Other: # Voids 6 2 # Incontinent Voids 6 # Bowel Movements 1 1 Narrative: GENERAL: SKIN: Warm and dry. HEAD: Normocephalic. EYES: No scleral icterus. No injection or drainage. NECK: Supple, trachea midline. No JVD or lymphadenopathy. CARDIOVASCULAR:IRREG rate and rhythm without murmurs, gallops, or rubs. RESPIRATORY: Breath sounds equal bilaterally. No accessory muscle use. GASTROINTESTINAL: Abdomen soft, non-tender, nondistended. MUSCULOSKELETAL: No cyanosis, or edema. BACK: Nontender without obvious deformity. No CVA tenderness. Results Procedures completed during hospitalization: none Labs on day of discharge: Labs from last 24 hours 06/26/18 06/26/18 06/26/18 06:43 06:43 06:43 CBC w Diff WBC RBC Hgb Hct MCV MCH MCHC RDW Plt Count MPV Neut % (Auto) Lymph % (Auto) [place] % (Auto) Eos % (Auto) Baso % (Auto) Neut # (Auto) Lymph # (Auto) [place] # (Auto) Eos # (Auto) Baso # (Auto) WBC Differential Seg Neuts % (Manual) Lymphocytes % (Manual) Monocytes % (Manual) Blast Cells % (Manual) Abs Neuts (Manual) Differential Comment Smudge Cells Platelet Estimate Platelet Morphology Ovalocytes Stomatocytes Keratocytes PT 26.1 H INR 2.6 Sodium 143 Potassium 3.9 Chloride 107 Carbon Dioxide 26.0 Anion Gap 10 BUN 17 Creatinine 1.20 H Estimated GFR 43 L Random Glucose 73 L Calcium 8.4 L B-Natriuretic Peptide 1592 H 06/26/18 06:43 CBC w Diff Slide review pending WBC 45.5 H RBC 3.75 L Hgb 12.0 Hct 36.3 MCV 96.7 MCH 31.9 MCHC 33.0 RDW 15.2 Plt Count 174 MPV 8.6 Neut % (Auto) 7.7 L Lymph % (Auto) 89.7 H [place] % (Auto) 2.4 Eos % (Auto) 0.1 Baso % (Auto) 0.1 Neut # (Auto) 3.5 Lymph # (Auto) 40.9 H [place] # (Auto) 1.1 H Eos # (Auto) 0.0 Baso # (Auto) 0.0 WBC Differential Manual diff final Seg Neuts % (Manual) 4 L Lymphocytes % (Manual) 93 H Monocytes % (Manual) 1 Blast Cells % (Manual) 2 H Abs Neuts (Manual) 1.8 Differential Comment . Smudge Cells Present H Platelet Estimate Normal Platelet Morphology Normal Ovalocytes 1+ H Stomatocytes 2+ H Keratocytes Occ H PT INR Sodium Potassium Chloride Carbon Dioxide Anion Gap BUN Creatinine Estimated GFR Random Glucose Calcium B-Natriuretic Peptide - Impressions ITS Impressions Chest X-Ray 06/26/18 00:00 CONCLUSION: No acute pulmonary infiltrates. No significant change compared to the prior exam. Discharge Plan - Discharge Disposition Patient Disposition: Discharge to SNF - Discharge Condition Condition: Stable - Discharge Order Discharge Orders: Discharge Order (Routine); Ordered 06/26/18 Ordered By: Norman Coronado - Discharge Details Anticipated Discharge Date: 06/26/18 - Physicians Team Primary Care Provider: Hemal Mcginnis Attending Provider: Norman Coronado Other Providers: Wing Mabel Tucker MD ; Deena [place]
[2018-06-26 16:38] VITALS: BP 107/69; PULSE 112; TEMP 97.2; O2SAT 95
[2018-06-26] MEDS ORDERED: Furosemide 20 MG Tablet PO SCH (18:00)
--- NOTE | 2018-06-27 14:37 | ECG ---
Date Performed: 06/25/2018 Time Performed: 14:57:39 PTAGE: 83 years EKG: ATRIAL FIBRILLATION WITH RAPID VENTRICULAR RESPONSE NONSPECIFIC ST & T-WAVE ABNORMALITY ABN ORMAL RHYTHM ECG Compared to PREVIOUS TRACING rate has increased, nonspecific ST T wave changes persist PREVIOUS TRAC IN06/24/2018 15.11 DOCTOR: Jimbo Ferreira Interpretating Date/Time 06/27/2018 14:37:11
== END 2018-06-26 16:43 ==
LOC: PHEDA 14:17 → PHEFT 14:17 → PHICU 17:37 → PH3 17:40
PROVIDERS: ADMIT Internal Medicine; ATTEND Internal Medicine